=== PATIENT | female | born 1975 ===

== ENCOUNTER 2024-06-01 12:52 | Observation (INO) | payer OTHER ==
[2024-06-01] VITALS (14 sets, daily range): BP systolic 127–151; BP diastolic 76–95
[~2024-06-01 12:52] MED LIST: BUPR150ER PO; LOSARTAN POTAS100 M1 PO; TRAZ100 PO; Venlafaxine HCl75 MG PO
--- NOTE | 2024-06-01 13:09 | NUR ---
DIRECT ADIMIT FROM [facility], ARRIVED VIA SAIGE GARCIA, INDEPENDENT, DENIES ANY PAIN OR NAUSEA, C/O DRY MOUTH, MOUTH SWABS GIVEN, NPO FOR SURGERY, ORIENTED TO ROOM AND CALL SYSTEM, AT BEDSIDE, CONT. TO MONITOR FOR ANY CHANGES.
[2024-06-01] MEDS ORDERED: FentaNYL Citrate 50 MCG/ML 2 ML Injection IV PRN (13:30)
[2024-06-01] MEDS ORDERED: Ondansetron HCl 2 MG / ML 2ML Vial IV PRN ×2 (13:30→14:35)
[2024-06-01] MEDS ORDERED: Lactated Ringer's 1,000 ML IV SCH ×3 (14:35→18:40)
[2024-06-01] MEDS ORDERED: HYDROcodone 5-APAP 325 TAB PO PRN (14:40)
[2024-06-01] MEDS ORDERED: Ondansetron 4 MG TAB PO PRN (14:40)
[2024-06-01] MEDS ORDERED: Ketorolac Tromethamine 30mg Vial IV PRN (15:10)
[2024-06-01] MEDS ORDERED: Bupivacaine 0.5% HCl 5 MG/ML 30MLVIAL ONE (15:40)
[2024-06-01] MEDS ORDERED: Piperacillin/Tazobactam Sod 3.375 GM in NS 100 ML IV SCH (16:00)
--- NOTE | 2024-06-01 17:01 | NUR ---
SUMMARY PT TAKEN TO THE OR, REPORTED HAVING ADEQUATE PAIN CONTROL W/ IV FENTANYL, DENIES ANY NAUSEA, TOOK A NAP MOST AFTERNOON REPORT TO NOC RN.
--- NOTE | 2024-06-01 17:08 | NUR ---
History, Chart, Medications and Allergies reviewed before start of procedure. Pre-Op teaching done. Pt verbalizes understanding. GLASSES REMOVED AND PLACED IN PACU. OTHER PT BELONGINGS LEFT IN PT ROOM ON SURG FLOOR.
[2024-06-01] MEDS ORDERED: propofoL 40 ML IV ONE (17:27)
[2024-06-01] MEDS ORDERED: FentaNYL Citrate 50 MCG/ML 5 ML Injection ONE (17:28)
[2024-06-01] MEDS ORDERED: Midazolam HCl 1MG / ML 2ML Vial ONE (17:28)
[2024-06-01] MEDS ORDERED: Sugammadex Sodium 200 MG/2ML SDV (100 MG/ML) ONE (18:09)
[2024-06-01] MEDS ORDERED: Rocuronium Bromide 10 MG/ML 5ML Injection IV ONE (18:09)
[2024-06-01] MEDS ORDERED: Dexamethasone Sod Phos 10 MG/ML 1ML VIAL ONE (18:09)
[2024-06-01] MEDS ORDERED: Phenylephrine HCl 100 MCG/ML-NS 10MLSYR (1MG/10ML) ONE (18:09)
[2024-06-01] MEDS ORDERED: Ketorolac Tromethamine 30mg Vial ONE (18:09)
[2024-06-01] MEDS ORDERED: Ondansetron HCl 2 MG / ML 2ML Vial ONE (18:09)
[2024-06-01] MEDS ORDERED: DiphenhydrAMINE HCl 50 MG/ML 1ML Vial IV PRN (20:20)
--- NOTE | 2024-06-01 20:30 | NUR ---
PT C/O SEVERE GENERALIZED ITCHING. REP ITCHING FROM NECK, FEET INCLUSING PALM OF HANDS. NO VISIBLE RASH NOTED. DR SEO NOTIFIED, REVIEWED MEDS GIVEN, NEW ORDER FOR IV BENADRYL. PLAN TO CONT W/CURRENT MED ORDERS AND NOTIFY FOR NEW CONCERNS.
[2024-06-01] MEDS ORDERED: TraZODone HCl 100 MG Tab PO SCH (21:00)
--- NOTE | 2024-06-01 21:30 | NUR ---
PT CONT TO C/O GENERALIZED ITCHING. PT REP SOME IMPROVEMENT AFTER BENADRYL GIVEN, BUT IS STILL BOTHERSOME. LINNENS AND GOWN CHANGED, COOL WASHCLOTH PROVIDED. INCISIONS W/MOD AMT SS DRNG, AREA CLEANSED W/SKINTEGRITY, SITES REINFORCED W/GAUZE AND BANDAID.
[2024-06-02 00:03] VITALS: BP 132/78
[2024-06-02 04:08] VITALS: BP 122/78
[2024-06-02 05:02] LABS: BASOPHILS ABSOLUTE AUTO 0.02 K/mm3 (0.00-0.23); BASOPHILS PERCENT AUTO 0 % (0-2); EOSINOPHILS PERCENT AUTO 0 % (0-6); Hematocrit 37.2 % (33.0-51.0); Hemoglobin 12.3 g/dL (11.5-16.0); IMMATURE GRAN ABSOLUTE AUTO 0.05 K/mm3 (0.00-0.10); IMMATURE GRAN PERCENT AUTO 0 % (0-1); LYMPHOCYTES ABSOLUTE AUTO 1.08 K/mm3 (0.84-5.20); LYMPHOCYTES PERCENT AUTO 7 % (21-46); MONOCYTES ABSOLUTE AUTO 0.66 K/mm3 (0.16-1.47); MONOCYTES PERCENT AUTO 4 % (4-13); Mean Corpuscular HGB 28.5 pg (26.0-34.0); Mean Corpuscular HGB Conc 33.1 g/dL (31.5-36.5); Mean Corpuscular Volume 86 fL (80-100); Mean Platelet Volume 10.8 fL (9.1-12.4); NEUTROPHILS ABSOLUTE AUTO 13.62 K/mm3 (1.96-9.15); NEUTROPHILS PERCENT AUTO 88 % (41-73); Platelet Count 285 K/mm3 (150-400); RDW Coefficient Variation 12.4 % (11.7-14.2); RDW Standard Deviation 39.3 fL (35.1-46.3); Red Blood Cell Count 4.32 M/mm3 (3.80-5.20); White Blood Cell Count 15.43 K/mm3 (4.00-11.30)
[2024-06-02 07:20] VITALS: BP 136/80
--- NOTE | 2024-06-02 07:20 | NUR ---
POD 1 S/P LAP APPY. PT VSS T/O NIGHT. NO ACTIVE DRNG NOTED FROM INCISIONS THIS AM. PT JOSUÉ REG PO, REP +FLATUS, DENIED N/V, IS VOIDING URINE W/O DIFFICULTY. PT REP ITCHING RESOLVED THIS AM. PT AMB INDEP IN ROOM, JOSUÉ WELL. IV SL THIS AM, ABX CONT PER ORDERS. PAIN MGD W/TORADOL W/REP RELIEF.
[2024-06-02] MEDS ORDERED: buPROPion HCL 150 MG TAB.SR.12H PO SCH (09:00)
[2024-06-02] MEDS ORDERED: Losartan Potassium 50 MG Tab PO SCH (09:00)
[2024-06-02] MEDS ORDERED: Venlafaxine HCl 75 MG CapCR PO SCH (09:00)
[2024-06-02] MEDS ORDERED: LIOT5 PO (11:25)
--- NOTE | 2024-06-02 11:41 | NUR ---
DR SEO IN TO SEE PT.
[2024-06-02] MEDS ORDERED: HYDR1TAB94 PO (11:50)
[2024-06-02] MEDS ORDERED: AMOCLA875 PO (11:50)
[2024-06-02 14:29] VITALS: BP 151/87
--- NOTE | 2024-06-02 14:50 | NUR ---
DISCHARGED VSS. PT GETTING UP INDEPENDENTLY TO VOID AND REPORTS PASSING FLATUS. PAIN TOLERABLE ON PO PAIN MEDS. TOLERATING DIET. REVIEWED DC INSTRUCTIONS W/PT; VERBALIZED UNDERSTANDING. IV DC'D. PT LEFT UNIT IN WC W/POSSESSIONS, DC PAPERWORK, AND PRESCRIPTIONS IN HAND, ACCOMPANIED BY FAMILY TO RIDE OUTSIDE.
== END 2024-06-02 14:45 | disposition home or self-care (01) ==
LOC: SURS 12:52
PROVIDERS: ADMIT Surgery
PROC: 0DTJ0ZZ Resection of Appendix, Open Approach (ICD-10-PCS; principal; 2024-06-01 17:00)
DX: K35.33 Acute appendicitis with perforation, localized peritonitis, and gangrene, with abscess (principal); I10 Essential (primary) hypertension; F32.A Depression, unspecified; Z79.899 Other long term (current) drug therapy; Z88.2 Allergy status to sulfonamides
CPT/HCPCS: 36415; 85025; 88304; A9270; J1100; J1200; J1885; J2250; J2371; J2405; J2543; J2704; J3010; J7120